=== PATIENT | male | born 1965 | race Caucasian/White ===

== ENCOUNTER 2022-01-07 06:04 | Day surgery (SDC) | payer MEDICARE, BC ==
[~2022-01-07] VITALS: Ht 185.4 cm; Wt 129.3 kg
[~2022-01-07 06:04] MED LIST: ALLO100T PO; ATOR1TAB19 PO; DOXA1TAB49 PO; FURO40TA2 PO; INSULANT SC; JANT7.5T PO; LOSA25TA13 PO; OMEP40CA5 PO; TRUL10IN SC
[2022-01-07] MEDS ORDERED: OFLOXACIN 0.3 % (OCUFLOX) OPTH SOL 5ML OS ONE (06:30)
[2022-01-07] MEDS ORDERED: PHENYLEPHRINE HCL 10 % OPHTH. SOL 5ML OS PRN (06:30)
[2022-01-07] MEDS ORDERED: BSS IRRIG/VANCO(10MG)/TOBRA(5MG)/EPINEPH(1:1000-0.5CC)500ML BAG-ORONLY IR ONE (06:30)
[2022-01-07] MEDS ORDERED: LIDOCAINE 3.5 % 1ML OPHTH TOPICAL GEL OU ONE (06:30)
[2022-01-07] MEDS ORDERED: LIDOCAINE 1% SDV 5ML VIAL As Ordered ONE (06:41)
[2022-01-07] MEDS ORDERED: POVIDONE-IODINE 5% OPHTH PREP SOL 30ML As Ordered ONE (06:41)
[2022-01-07] MEDS ORDERED: DUOVISC (0.50ML VISCOAT/0.85ML PROVISC) OPHTH KIT As Ordered ONE (06:42)
[2022-01-07] MEDS ORDERED: CEFUROXIME 1MG/0.1ML INTRACAMERAL INJ As Ordered ONE (06:42)
[2022-01-07] MEDS: TROPICAMIDE 1% OPHTH SOLN 2ML OS SCH ×3 (06:47→07:19)
[2022-01-07] MEDS: CYCLOPENTOLATE 1% OPHTH SOLN 2 ML BTL OS SCH ×3 (06:48→07:19)
[2022-01-07] MEDS: PHENYLEPHRINE 2.5% OPHTH SOL 2ML OS SCH ×3 (06:48→07:19)
[2022-01-07] MEDS ORDERED: MIDAZOLAM INJ 2MG/2ML VIAL (J2250 PER 1MG) As Ordered ONE (07:15)
[2022-01-07 08:11] VITALS: BP 177/89
== END 2022-01-07 08:26 | disposition home or self-care (01) ==
LOC: M SDC 06:04
PROVIDERS: ATTEND Ophthalmology
DX: H25.12 Age-related nuclear cataract, left eye (principal); I10 Essential (primary) hypertension
CPT/HCPCS: 66984; J0697; J2250; V2632

== ENCOUNTER → 2023-09-29 | Outpatient (CLI) | payer MEDICARE, OTHER | LOC: M RAD 07:59 | PROVIDERS: ATTEND Physician Assistant | DX: M47.892 Other spondylosis, cervical region (principal); M50.10 Cervical disc disorder with radiculopathy, unspecified cervical region ==